=== PATIENT | female | born 1970 | race Caucasian/White ===

== ENCOUNTER 2016-10-31 15:22 | Emergency (ER) | payer BC, OTHER ==
[~2016-10-31] VITALS: Ht 162.6 cm; Wt 90.7 kg
[2016-10-31 15:31] VITALS: BP 156/88; PULSE 137; RESP 20; TEMP 98.2; O2SAT 100
--- NOTE | 2016-10-31 15:35 | NUR ---
Placed in room 02. Placed on surveillance monitor, blood pressure machine and pulse oximeter. To gown for exam. Side rails up. Addendum: 10/31/16 at 1541 by [email or web address] Placed in bed 1
--- NOTE | 2016-10-31 15:50 | NUR ---
TEMP 98.8, PULSE 121, BP 152/79
[2016-10-31] MEDS ORDERED: NS 1000 ML BAG IV ONE (16:00)
[2016-10-31] MEDS ORDERED: PROCHLORPERAZINE EDISYLATE 10 MG/2 ML VIAL IVP ONE (16:00)
[2016-10-31] MEDS ORDERED: DEXAMETHASONE SOD PHOSPHATE 10 MG/ML VIAL IVP ONE (16:00)
[2016-10-31] MEDS ORDERED: KETOROLAC TROMETHAMINE 30 MG VIAL IVP ONE (16:00)
--- NOTE | 2016-10-31 16:00 | NUR ---
DR. CANSECO AT BEDSIDE EXAMINING THE PT.
--- NOTE | 2016-10-31 16:00 | NUR ---
# 20 gauge angiocath placed to RAC. Use of asceptic technique. Opsite placed over site. Blood return noted. Blood for lab drawn from site. Flushed with 10 cc of normal saline. No evidence of infiltration noted. Patient tolerated well.
[2016-10-31 16:03] LABS: BILIRUBIN,URINE NEGATIVE (NEGATIVE); BLOOD, URINE 2+ (NEGATIVE); COLOR,URINE YELLOW (YELLOW); GLUCOSE,URINE NEGATIVE (NEGATIVE); KETONES,URINE NEGATIVE (NEGATIVE); LEUKOCYTE ESTERASE ,URINE 1+ (NEGATIVE); NITRITE, URINE NEGATIVE (NEGATIVE); PH,URINE 5.5 (5.0-8.0); PROTEIN URINE NEGATIVE (NEGATIVE); UROBILINOGEN,URINE 0.2 (0.2-1.0)
--- NOTE | 2016-10-31 16:10 | NUR ---
PT. TO ER AAOx4 SENT FROM HER DOCTORS OFFICE FOR FEVER AND HEADACHE FOR 3 DAYS, STATES THAT SHE WAS IN URGENT CARE TWO WEEKS AGO, WAS DISCHARGED WITH AUGMENTIN FOR 10 DAYS, STATES SHE RARELY GETS SICK HOWEVER HER PCP SENT HER TODAY TO RULE OUT SEPSIS, STATES NO SORE THROAT, STATES NO STIFFNESS IN HEAD OR NECK, HEADACHE AT THIS TIME 10/10, ON COOK APPRENTICE PASTRY
[2016-10-31 16:13] LABS: CLARITY/URINE SLIGHTLY HAZY (CLEAR)
[2016-10-31 16:15] LABS: BACTERIA,URINE FEW /HPF (None Seen); MUCUS,URINE None Seen /LPF (None Seen); RBC,URINE 0-3 /HPF (0-3)
[2016-10-31 16:17] LABS: BARBITURATE, URINE NEGATIVE (NEG <=200); BENZODIAZEPINE, URINE NEGATIVE (NEG <=150); CANNABINOID, URINE NEGATIVE (NEG <=50); COCAINE, URINE NEGATIVE (NEG <=150); METHAMPHETAMINES SCREEN,URINE NEGATIVE (NEG <=500); OPIATE, URINE NEGATIVE (NEG <=100); PHENCYCLIDINE SCREEN,URINE NEGATIVE (NEG <=25); UR TRICYCLIC ANTIDEPRESSANTS NEGATIVE (NEG <=300); URINE AMPHETAMINE NEGATIVE (NEG <=500); URINE METHADONE NEGATIVE (NEG <=200); URINE OXYCODONE SCREEN NEGATIVE (NEG <=100); URINE PROPOXYPHENE SCREEN NEGATIVE (NEG <=300)
[2016-10-31 16:24] LABS: BASOPHILS # (AUTO) 0.1 K/uL (0.0-0.2); BASOPHILS % (AUTO) 0.4 % (0.0-2.0); EOSINOPHILS # (AUTO) 0.2 K/uL (0.0-0.4); EOSINOPHILS % (AUTO) 1.6 % (0.0-4.0); HEMATOCRIT 41.4 % (36-48); HEMOGLOBIN 13.9 g/dL (12.0-16.0); LYMPHOCYTES # (AUTO) 1.9 K/uL (1.0-5.5); LYMPHOCYTES % (AUTO) 13.8 % (20.5-51.5); MEAN CORPUSCULAR HEMOGLOBIN 30 pg (27-31); MEAN CORPUSCULAR HGB CONC 34 % (32-36); MEAN CORPUSCULAR VOLUME 89 fL (79.0-98.0); MONOCYTES # (AUTO) 0.7 K/uL (0.0-1.0); MONOCYTES % (AUTO) 5.5 % (1.7-9.3); NEUTROPHILS # (AUTO) 10.6 K/uL (1.8-7.7); NEUTROPHILS % (AUTO) 78.7 % (40.0-70.0); PLATELET COUNT (AUTO) 262 K/uL (130-430); RED BLOOD CELL COUNT(AUTO) 4.65 MIL/uL (4.2-6.2); RED CELL DISTRIBUTION WIDTH 12.4 % (9.0-15.0); WHITE BLOOD COUNT (AUTO) 13.4 K/uL (4.8-10.8)
[2016-10-31 16:26] LABS: CALCIUM 9.1 mg/dL (8.4-11.0); CREATININE 0.97 mg/dL (0.55-1.30); POTASSIUM 3.1 mmol/L (3.5-5.1)
[2016-10-31 16:27] LABS: PROTHROMBIN TIME 10.5 SECS (9.5-12.5)
[2016-10-31 16:31] LABS: ALBUMIN 3.8 g/dL (3.4-4.8); TOTAL BILIRUBIN 0.4 mg/dL (0.0-1.0); TOTAL PROTEIN, SERUM 7.4 g/dL (6.4-8.3)
[2016-10-31] MEDS ORDERED: POTASSIUM CHLORIDE 20 MEQ TAB.PRT.SR PO ONE (17:15)
[2016-10-31 17:20] VITALS: BP 144/81; PULSE 94; RESP 20; TEMP 98.8; O2SAT 98
--- NOTE | 2016-10-31 17:20 | NUR ---
Patient given written and verbal discharge instructions and verbalizes understanding. ER MD dr. richard discussed with patient the results and treatment provided. Patient in stable condition. ID arm band removed. IV catheter removed intact and dressing applied, no active bleeding. Rx of macrobid ibuprofen given. Patient educated on pain management and to follow up with PMD. Pain Scale 0/10 Opportunity for questions provided and answered.
== END 2016-10-31 17:20 | disposition home or self-care (01) ==
LOC: SED 15:22
DX: N39.0 Urinary tract infection, site not specified (principal)
CPT/HCPCS: 36415; 70450; 80053; 80307; 81000; 83605; 85025; 85610; 87040; 87086; 93005; 96361; 96374; 96375; 99285; J0780; J1100; J1885; J7030

== ENCOUNTER 2018-09-13 16:57 | Emergency (ER) | payer BC ==
[~2018-09-13] VITALS: Ht 162.6 cm; Wt 90.7 kg
[2018-09-13 17:02] VITALS: BP_SYST 131
[2018-09-13 18:29] LABS: EOSINOPHILS # (AUTO) 0.1 K/uL (0.0-0.4); EOSINOPHILS % (AUTO) 0.8 % (0.0-4.0); MEAN CORPUSCULAR HGB CONC 33 % (32-36)
[2018-09-13 18:43] LABS: CALCIUM 9.4 mg/dL (8.4-11.0); CREATININE 0.84 mg/dL (0.55-1.30); POTASSIUM 3.4 mmol/L (3.5-5.1)
[2018-09-13 18:47] LABS: BASOPHILS % (AUTO) 0.5 % (0.0-2.0); HEMATOCRIT 42.9 % (36-48); HEMOGLOBIN 14.2 g/dL (12.0-16.0); LYMPHOCYTES # (AUTO) 1.3 K/uL (1.0-5.5); LYMPHOCYTES % (AUTO) 14.9 % (20.5-51.5); MEAN CORPUSCULAR HEMOGLOBIN 31 pg (27-31); MEAN CORPUSCULAR VOLUME 93 fL (79.0-98.0); MONOCYTES # (AUTO) 0.2 K/uL (0.0-1.0); MONOCYTES % (AUTO) 1.8 % (1.7-9.3); NEUTROPHILS # (AUTO) 7.2 K/uL (1.8-7.7); PLATELET COUNT (AUTO) 319 K/uL (130-430); RED BLOOD CELL COUNT(AUTO) 4.63 MIL/uL (4.2-6.2); RED CELL DISTRIBUTION WIDTH 12.8 % (9.0-15.0); WHITE BLOOD COUNT (AUTO) 8.8 K/uL (4.8-10.8)
[2018-09-13 18:48] LABS: ALBUMIN 3.9 g/dL (3.4-4.8); TOTAL BILIRUBIN 0.3 mg/dL (0.0-1.0)
[2018-09-13 18:53] LABS: INR 0.9 (0.8-1.2); PROTHROMBIN TIME 9.6 SECS (9.5-12.5)
[2018-09-13 19:45] VITALS: BP_SYST 151
== END 2018-09-13 19:45 | disposition home or self-care (01) ==
LOC: SED 16:57
DX: S76.811A Strain of other specified muscles, fascia and tendons at thigh level, right thigh, initial encounter (principal); I10 Essential (primary) hypertension; Z88.1 Allergy status to other antibiotic agents; X50.9XXA Other and unspecified overexertion or strenuous movements or postures, initial encounter; Y93.89 Activity, other specified; Y92.009 Unspecified place in unspecified non-institutional (private) residence as the place of occurrence of the external cause; Y99.8 Other external cause status
CPT/HCPCS: 36415; 80053; 81025; 85025; 85610-TC; 85730-TC; 93971; 99284